=== PATIENT | male | born 1940 | race Caucasian/White ===

== ENCOUNTER 2017-12-08 09:17 | Outpatient (CLI) | payer MEDICARE ==
[~2017-12-08 09:17] MED LIST: ASPI-845 PO; ATOR10TA PO; COL100C PO; HYDR-3972 PO; LOSA1TAB36 PO; PANT40TA4 PO; [UNRECOGNIZED DRUG - CODE] PO
[2017-12-08] MEDS ORDERED: BARIUM SULFATE/METHYLCELLULOSE 600 ML SUSPENSION BOTTLE**DONT ENTER PO ONE (09:41)
== END 2017-12-08 23:59 | disposition home or self-care (01) ==
LOC: RAD 09:17
PROVIDERS: ATTEND Surgery
DX: R10.9 Unspecified abdominal pain (principal); R11.10 Vomiting, unspecified; Z87.19 Personal history of other diseases of the digestive system; Z79.82 Long term (current) use of aspirin; Z87.891 Personal history of nicotine dependence
CPT/HCPCS: 74250

== ENCOUNTER 2021-10-11 05:26 | Inpatient (IN) | payer MEDICARE ==
[2021-10-10 10:08] LABS: BASOPHILS # (AUTO) 0.1 X10'3 (0-0.2); BASOPHILS % (AUTO) 0.6 % (0-1); EOSINOPHILS # (AUTO) 0.4 X10'3 (0-0.9); EOSINOPHILS % (AUTO) 3.6 % (0-6); LYMPHOCYTES # (AUTO) 1.2 X10'3 (1.1-4.8); LYMPHOCYTES % (AUTO) 12.3 % (21-51); MEAN CORPUSCULAR HEMOGLOBIN 29.6 PG (27.0-31.0); MEAN CORPUSCULAR VOLUME 89.7 FL (78-98); MEAN PLATELET VOLUME 8.5 FL (7.4-10.4); MONOCYTES # (AUTO) 0.7 X10'3 (0-0.9); MONOCYTES % (AUTO) 7.5 % (2-12); NEUTROPHILS # (AUTO) 7.5 X10'3 (1.8-7.7); PRE OP HEMATOCRIT 42.4 % (42.0-52.0); PRE OP PLATELET COUNT 210 X10'3 (140-440); RED BLOOD COUNT 4.72 X10'6 (4.70-6.10); RED CELL DISTRIBUTION WIDTH 15.7 % (11.5-14.5)
[2021-10-10 10:23] LABS: PRE OP INR 1.1 INR; PRE OP PROTIME 11.1 SECONDS (9.0-12.0)
[2021-10-10 11:30] LABS: ALBUMIN 3.6 G/DL (3.4-5.0); ALBUMIN/GLOBULIN RATIO 1.1 (1.1-1.5); ALKALINE PHOSPHATASE 103 IU/L (46-116); BLOOD UREA NITROGEN 28 MG/DL (7-18); BUN/CREATININE RATIO 16.8 (5.4-32.0); CALCIUM 9.2 MG/DL (8.5-10.1); CHLORIDE 105 MMOL/L (99-107); CREATININE 1.67 MG/DL (0.60-1.10); PRE OP ALT 12 U/L (30-65); PRE OP ANION GAP 11 (8-16); PRE OP AST 16 U/L (10-37); PRE OP BILIRUB, TOTAL 0.6 MG/DL (0.0-1.0); PRE OP GLUCOSE 100 MG/DL (70-104); PRE OP POTASSIUM 4.4 MMOL/L (3.4-5.1); PRE OP SODIUM 141 MMOL/L (135-145); TOTAL CARBON DIOXIDE 25.5 MMOL/L (24-32); eGFR 40 ML/MIN
[~2021-10-11] VITALS: Ht 167.6 cm; Wt 72.2 kg
[2021-10-11] VITALS (27 sets, daily range): BP systolic 94–143; BP diastolic 41–73
[~2021-10-11 05:26] MED LIST changes: +AMLO5TAB16 PO; +ASPI-1071 PO; -ASPI-845 PO; -ATOR10TA PO; +ATOR10TA70 PO; -COL100C PO; +CYAN500T71 PO; +FERR236T3 PO; -HYDR-3972 PO; -LOSA1TAB36 PO; +LOSA50TA64 PO; +MAGN400C PO; +PANT20TA18 PO; -PANT40TA4 PO; -[UNRECOGNIZED DRUG - CODE] PO; +ringers solution, lacted 1,000 ML IV SCH
[2021-10-11] MEDS ORDERED: famotidine 20mg tablet PO ONE (05:30)
[2021-10-11] MEDS ORDERED: vancomycin 1,500 MG in NS 300ml IV soln IV ONE (05:30)
[2021-10-11] MEDS ORDERED: ceFAZolin inj. 2,000 MG in dextrose 5%-water 100 ML IV ONE (05:30)
[2021-10-11] MEDS ORDERED: BUPIVAcaine 0.5% inj/PF 0 ML ONE (07:01)
[2021-10-11] MEDS ORDERED: tetracaine 1% (10mg/ml) pres. free inj. ONE (07:14)
[2021-10-11] MEDS ORDERED: morphine /PF 1mg/ml 10ml inj. ONE (07:26)
[2021-10-11] MEDS ORDERED: midazolam 1 mg/ML 2ml injection ONE (07:27)
[2021-10-11] MEDS ORDERED: propofol inj 20 ML IV ONE (07:58)
[2021-10-11] MEDS ORDERED: ePHEDrine 50MG/ML INJ. ONE (08:02)
[2021-10-11] MEDS ORDERED: diphenhydrAMINE 50 mg/ml inj IV PRN (08:25)
[2021-10-11] MEDS ORDERED: ringers solution, lacted 1,000 ML IV SCH (08:25)
[2021-10-11] MEDS ORDERED: ondansetron/PF 4mg/2ml inj IV PRN ×4 (08:25→09:25)
[2021-10-11] MEDS ORDERED: naloxone 2mg/2ml inj 2 MG in normal saline 500ml IV soln 500 ML IV PRN (08:25)
[2021-10-11] MEDS ORDERED: acetaminophen 1,000mg/100ml IV 100 ML IV PRN (08:25)
[2021-10-11] MEDS ORDERED: naloxone 0.4 mg/ml inj IV PRN ×2 (08:25→09:25)
[2021-10-11] MEDS ORDERED: morphine 2 MG/ML inj. syringe IV PRN (08:25)
[2021-10-11] MEDS ORDERED: meperidine/PF 25mg/ml syringe IV PRN ×3 (08:25)
[2021-10-11] MEDS ORDERED: proCHLORperazine 10 MG/2 ml inj IV PRN (08:25)
[2021-10-11] MEDS ORDERED: morphine 4 MG/ML inj SYRINge IV PRN (08:25)
--- NOTE | 2021-10-11 09:02 | NUR ---
Received from OR via BED, accompanied by Anesthesiologist DR PRESLEY and report given by Anesthesiologist AND [employer]ER. PT VERY DROWSY, NO S/S OF DISTRESS/DISCOMFORT. LEFT HIP/UPPER THIGH W/ISLAND DRSG CDI, ERVIN CATHETER TO GRAVITY DRAINAGE W/YELLOW URINE IN DRAINAGE BAG. Addendum: 10/11/21 at 8075 by Selina Gardiner RN Amended: Links added.
[2021-10-11] MEDS ORDERED: bisacodyl 10mg suppository rectal RC PRN (09:25)
[2021-10-11] MEDS ORDERED: magnesium hydroxide 30ml (MOM) UD suspension PO PRN (09:25)
[2021-10-11] MEDS ORDERED: acetaminophen 325mg tablet PO PRN (09:25)
[2021-10-11] MEDS ORDERED: HYDROmorphone inj. 0.5 MG/0.5 ML DISP.SYRIN IV PRN (09:25)
[2021-10-11] MEDS ORDERED: diphenhydrAMINE 25mg capsule PO PRN ×2 (09:25)
--- NOTE | 2021-10-11 11:42 | NUR ---
Report called to receiving nurse. Transferred via BED W/1 BAG OF Belongings AND BILAT HEARING AIDS IN PTS EARS. BLL, CALL LIGHT GIVEN, SIDE RAILS UP X 2, PTS FAMILY AT BEDSIDE, RECEIVING RN NOTIFIED OF PTS ARRIVAL. Special Issues communicated to receiving nurse. YES. Addendum: 10/11/21 at 1155 by Selina Gardiner RN Amended: Links added.
[2021-10-11] MEDS: potassium Cl 20mEq in NS 1,000 ML IV SCH ×2 (12:24→22:45)
[2021-10-11] MEDS: ceFAZolin/D5W- 1GM premix 50 ML IV SCH ×2 (17:15→23:30)
[2021-10-11] MEDS: aspirin 81mg, enteric-coated 1 TAB TABLET.DR PO SCH (17:15)
--- NOTE | 2021-10-11 18:00 | NUR ---
Pt sitting in bed, no complaints. However stated he was nauseated and vomited at sometime today. Addendum: 10/11/21 at 1853 by Nellie Neil RN Amended: Links added.
--- NOTE | 2021-10-11 18:23 | NUR ---
Gave report to Nellie THOMAS.
[2021-10-11] MEDS ORDERED: vancomycin/NS 1 GM ADD-VANTAGE 250 ML IV SCH (20:00)
[2021-10-11] MEDS ORDERED: sennosides 8.6mg tablet PO SCH (21:00)
[2021-10-12 02:00] VITALS: BP 127/58
[2021-10-12] MEDS: potassium Cl 20mEq in NS 1,000 ML IV SCH (03:07)
[2021-10-12] MEDS: HYDROcodone/acetaminophen 10/325mg tab PO PRN ×3 (05:04→15:43)
--- NOTE | 2021-10-12 06:32 | NUR ---
Problems reprioritized. Patient report given, questions answered & plan of care reviewed with Eve THOMAS. Addendum: 10/12/21 at 0632 by Nellie Neil RN Amended: Links added.
--- NOTE | 2021-10-12 06:38 | NUR ---
Patient in room [facility] 4007. I have received report from nikky THOMAS and had the opportunity to ask questions and assume patient care.
[2021-10-12 07:06] VITALS: BP 145/55
[2021-10-12] MEDS: aspirin 81mg, enteric-coated 1 TAB TABLET.DR PO SCH ×2 (07:29→17:19)
[2021-10-12] MEDS ORDERED: pantoprazole 40mg Tablet.DR PO SCH (08:00)
[2021-10-12] MEDS ORDERED: amLODIPine 5mg tablet PO SCH (08:00)
[2021-10-12] MEDS ORDERED: losartan 50mg tablet PO SCH (08:00)
[2021-10-12 11:00] VITALS: BP 100/60
[2021-10-12 15:00] VITALS: BP 124/47
[2021-10-12 17:00] VITALS: BP 113/48
--- NOTE | 2021-10-12 18:32 | NUR ---
patient up walking around with PT cleared by PT for DC see note. Dr patton paged with regards discharge. DR patton called via cell to DC patient. Orders received for DC. Dressing to left hip CDI. All DC instructions given to patient. PIV removed intact. Report given to nikky THOMAS
--- NOTE | 2021-10-12 19:53 | NUR ---
Pt is anxious to leave and has been pacing the halls using FWW awaiting d/c. Pts discharge instructions explained to him and his . All belongings including pts FWW taken home. Pt and understand to call Dr. Bijal anne on Friday for Friday appt time.
== END 2021-10-12 19:40 | disposition home or self-care (01) | DRG 482 ==
LOC: PAS 05:26 → ORTHO 4S 09:27
PROVIDERS: ADMIT Orthopaedic Surgery; ATTEND Orthopaedic Surgery
PROC: 0QS704Z Reposition Left Upper Femur with Internal Fixation Device, Open Approach (ICD-10-PCS; principal; 2021-10-11 07:18)
DX: S72.002A Fracture of unspecified part of neck of left femur, initial encounter for closed fracture (principal); X58.XXXA Exposure to other specified factors, initial encounter; Y93.89 Activity, other specified; Y92.89 Other specified places as the place of occurrence of the external cause; Y99.8 Other external cause status
CPT/HCPCS: 36415; 73502; 76000; 80053; 82948; 85025; 85610; 85730; 87081; 93005; 97116; 97161; 97530; A4615; G0378; J0690; J2250; J2274; J2704; J3370; J3480; J3490; J7040; J7060; J7120; Q0163; S0020

== ENCOUNTER 2024-04-07 09:01 | Day surgery (SDC) | payer MEDICARE ==
[~2024-04-07] VITALS: Ht 167.6 cm; Wt 72.2 kg
[~2024-04-07 09:01] MED LIST changes: -AMLO5TAB16 PO; -ASPI-1071 PO; +ASPI-529 PO; -ATOR10TA70 PO; +ATOR40TA72 PO; +CARV-50 PO; -CYAN500T71 PO; -FERR236T3 PO; +IRON; -MAGN400C PO; +VITAMIN B 12; -ringers solution, lacted 1,000 ML IV SCH
[2024-04-07 09:59] VITALS: BP 142/71; PULSE 60; RESP 12; TEMP 97.7
[2024-04-07] MEDS ORDERED: simethicone 40mg/0.6ml oral drops 30ml PO PRN (10:00)
[2024-04-07 10:31] VITALS: BP 144/68; PULSE 62; RESP 12; TEMP 97.7
[2024-04-07] MEDS ORDERED: fentaNYL/PF 50MCG/1 ML 2ML syringe ONE (11:17)
[2024-04-07 11:30] VITALS: BP 109/45; PULSE 62; RESP 16; O2SAT 100
[2024-04-07] MEDS ORDERED: propofol inj 20 ML IV ONE (11:32)
[2024-04-07 11:40] VITALS: BP 113/48; PULSE 60; RESP 15; O2SAT 98
[2024-04-07 11:50] VITALS: BP 117/59; PULSE 60; RESP 17; O2SAT 97
[2024-04-07 12:00] VITALS: BP 125/53; PULSE 62; RESP 15; O2SAT 98
== END 2024-04-07 12:09 | disposition home or self-care (01) ==
LOC: GI LAB 09:01
PROVIDERS: ATTEND Internal Medicine Gastroenterology
DX: R13.10 Dysphagia, unspecified (principal); K44.9 Diaphragmatic hernia without obstruction or gangrene; K22.2 Esophageal obstruction; C16.0 Malignant neoplasm of cardia; I13.0 Hypertensive heart and chronic kidney disease with heart failure and stage 1 through stage 4 chronic kidney disease, or unspecified chronic kidney disease; N18.30 Chronic kidney disease, stage 3 unspecified; I50.9 Heart failure, unspecified; E78.5 Hyperlipidemia, unspecified; K21.9 Gastro-esophageal reflux disease without esophagitis; Z87.891 Personal history of nicotine dependence; Z79.82 Long term (current) use of aspirin; Z79.899 Other long term (current) drug therapy; Z90.49 Acquired absence of other specified parts of digestive tract; Z95.1 Presence of aortocoronary bypass graft; Z95.0 Presence of cardiac pacemaker; Z98.890 Other specified postprocedural states
CPT/HCPCS: 43239; 88341; J2704; J3010; J7030; Z7512; 43235; 88305; 88342